=== PATIENT | female | born 1970 | race Caucasian/White ===

== ENCOUNTER 2021-06-15 08:17 | Day surgery (SDC) | payer BC | END 2021-06-15 22:48 | disposition home or self-care (01) | LOC: WOUND 08:17 | DX: T81.31XA Disruption of external operation (surgical) wound, not elsewhere classified, initial encounter (principal); S21.001D Unspecified open wound of right breast, subsequent encounter; S21.002D Unspecified open wound of left breast, subsequent encounter; X58.XXXD Exposure to other specified factors, subsequent encounter | CPT/HCPCS: A9270; G0463 ==

== ENCOUNTER 2021-06-22 02:19 | Day surgery (SDC) | payer BC | END 2021-06-22 23:18 | disposition home or self-care (01) | LOC: WOUND 02:19 | DX: S21.001D Unspecified open wound of right breast, subsequent encounter (principal); S21.002D Unspecified open wound of left breast, subsequent encounter; X58.XXXD Exposure to other specified factors, subsequent encounter | CPT/HCPCS: A9270; G0463 ==

== ENCOUNTER 2021-06-29 00:25 | Day surgery (SDC) | payer BC | END 2021-06-29 23:23 | disposition home or self-care (01) | LOC: WOUND 00:25 | DX: T81.31XA Disruption of external operation (surgical) wound, not elsewhere classified, initial encounter (principal); S21.002D Unspecified open wound of left breast, subsequent encounter; S21.001D Unspecified open wound of right breast, subsequent encounter; X58.XXXD Exposure to other specified factors, subsequent encounter | CPT/HCPCS: A9270 ==

== ENCOUNTER 2021-07-04 03:08 | Day surgery (SDC) | payer BC | END 2021-07-04 23:21 | disposition home or self-care (01) | LOC: WOUND 03:08 | DX: S21.002A Unspecified open wound of left breast, initial encounter (principal); S21.001A Unspecified open wound of right breast, initial encounter; X58.XXXA Exposure to other specified factors, initial encounter ==

== ENCOUNTER 2021-07-06 01:22 | Day surgery (SDC) | payer BC | END 2021-07-06 23:06 | disposition home or self-care (01) | LOC: WOUND 01:22 | DX: S21.001D Unspecified open wound of right breast, subsequent encounter (principal); S21.002D Unspecified open wound of left breast, subsequent encounter | CPT/HCPCS: A9270 ==

== ENCOUNTER 2021-07-08 03:03 | Day surgery (SDC) | payer BC | END 2021-07-08 23:33 | disposition home or self-care (01) | LOC: WOUND 03:03 | DX: S21.001A Unspecified open wound of right breast, initial encounter (principal); S21.002A Unspecified open wound of left breast, initial encounter; X58.XXXA Exposure to other specified factors, initial encounter | CPT/HCPCS: A9270 ==

== ENCOUNTER 2021-07-12 09:16 | Day surgery (SDC) | payer BC | END 2021-07-12 23:01 | disposition home or self-care (01) | LOC: WOUND 09:16 | DX: S21.001D Unspecified open wound of right breast, subsequent encounter (principal); S21.002D Unspecified open wound of left breast, subsequent encounter; X58.XXXD Exposure to other specified factors, subsequent encounter | CPT/HCPCS: G0463 ==

== ENCOUNTER 2021-07-15 01:28 | Day surgery (SDC) | payer BC | END 2021-07-15 23:15 | disposition home or self-care (01) | LOC: WOUND 01:28 | DX: T81.31XA Disruption of external operation (surgical) wound, not elsewhere classified, initial encounter (principal); S21.001D Unspecified open wound of right breast, subsequent encounter; S21.002D Unspecified open wound of left breast, subsequent encounter; X58.XXXD Exposure to other specified factors, subsequent encounter | CPT/HCPCS: 87070; 87075; 87205; A9270; G0463 ==

== ENCOUNTER 2021-07-18 08:47 | Day surgery (SDC) | payer BC | END 2021-07-18 23:43 | disposition home or self-care (01) | LOC: WOUND 08:47 | DX: T81.31XA Disruption of external operation (surgical) wound, not elsewhere classified, initial encounter (principal); Y83.8 Other surgical procedures as the cause of abnormal reaction of the patient, or of later complication, without mention of misadventure at the time of the procedure | CPT/HCPCS: A9270; G0463 ==

== ENCOUNTER 2021-07-22 01:54 | Day surgery (SDC) | payer BC | END 2021-07-22 23:26 | disposition home or self-care (01) | LOC: WOUND 01:54 | DX: T81.31XA Disruption of external operation (surgical) wound, not elsewhere classified, initial encounter (principal); S21.001D Unspecified open wound of right breast, subsequent encounter; S21.002D Unspecified open wound of left breast, subsequent encounter; X58.XXXD Exposure to other specified factors, subsequent encounter | CPT/HCPCS: A9270 ==

== ENCOUNTER 2021-07-25 08:56 | Day surgery (SDC) | payer BC | END 2021-07-25 23:03 | disposition home or self-care (01) | LOC: WOUND 08:56 | DX: S21.001D Unspecified open wound of right breast, subsequent encounter (principal); S21.002D Unspecified open wound of left breast, subsequent encounter; X58.XXXD Exposure to other specified factors, subsequent encounter ==

== ENCOUNTER 2021-07-27 08:12 | Day surgery (SDC) | payer BC | END 2021-07-27 12:00 | disposition home or self-care (01) | LOC: WOUND 08:12 | DX: S21.002D Unspecified open wound of left breast, subsequent encounter (principal); S21.001D Unspecified open wound of right breast, subsequent encounter; X58.XXXD Exposure to other specified factors, subsequent encounter ==

== ENCOUNTER 2021-07-29 04:38 | Day surgery (SDC) | payer BC | END 2021-07-29 23:21 | disposition home or self-care (01) | LOC: WOUND 04:38 | DX: S21.001D Unspecified open wound of right breast, subsequent encounter (principal); S21.002D Unspecified open wound of left breast, subsequent encounter; X58.XXXD Exposure to other specified factors, subsequent encounter ==

== ENCOUNTER 2021-08-01 04:43 | Day surgery (SDC) | payer BC | END 2021-08-01 23:50 | disposition home or self-care (01) | LOC: WOUND 04:43 | DX: S21.001D Unspecified open wound of right breast, subsequent encounter (principal); S21.002D Unspecified open wound of left breast, subsequent encounter; X58.XXXD Exposure to other specified factors, subsequent encounter | CPT/HCPCS: A9270 ==

== ENCOUNTER 2021-08-05 00:48 | Day surgery (SDC) | payer BC | END 2021-08-05 12:00 | disposition home or self-care (01) | LOC: WOUND 00:48 | DX: S21.001D Unspecified open wound of right breast, subsequent encounter (principal); S21.002D Unspecified open wound of left breast, subsequent encounter; X58.XXXD Exposure to other specified factors, subsequent encounter ==

== ENCOUNTER 2021-08-10 02:11 | Day surgery (SDC) | payer BC | END 2021-08-10 23:07 | disposition home or self-care (01) | LOC: WOUND 02:11 | DX: T81.31XA Disruption of external operation (surgical) wound, not elsewhere classified, initial encounter (principal); S21.001D Unspecified open wound of right breast, subsequent encounter; S21.002D Unspecified open wound of left breast, subsequent encounter; X58.XXXD Exposure to other specified factors, subsequent encounter | CPT/HCPCS: A9270 ==

== ENCOUNTER 2021-08-12 01:27 | Day surgery (SDC) | payer BC | END 2021-08-12 23:51 | disposition home or self-care (01) | LOC: WOUND 01:27 | DX: S21.001D Unspecified open wound of right breast, subsequent encounter (principal); S21.002D Unspecified open wound of left breast, subsequent encounter; X58.XXXD Exposure to other specified factors, subsequent encounter ==

== ENCOUNTER 2021-08-15 03:09 | Day surgery (SDC) | payer BC | END 2021-08-15 22:56 | disposition home or self-care (01) | LOC: WOUND 03:09 | DX: S21.001D Unspecified open wound of right breast, subsequent encounter (principal); S21.002D Unspecified open wound of left breast, subsequent encounter; X58.XXXD Exposure to other specified factors, subsequent encounter ==

== ENCOUNTER 2021-08-17 05:11 | Day surgery (SDC) | payer BC | END 2021-08-17 22:49 | disposition home or self-care (01) | LOC: WOUND 05:11 | DX: S21.001D Unspecified open wound of right breast, subsequent encounter (principal); S21.002D Unspecified open wound of left breast, subsequent encounter; X58.XXXD Exposure to other specified factors, subsequent encounter | CPT/HCPCS: A9270 ==

== ENCOUNTER 2021-08-19 04:15 | Day surgery (SDC) | payer BC | END 2021-08-19 23:48 | disposition home or self-care (01) | LOC: WOUND 04:15 | DX: T81.31XA Disruption of external operation (surgical) wound, not elsewhere classified, initial encounter (principal) | CPT/HCPCS: A9270 ==

== ENCOUNTER 2021-08-31 01:40 | Day surgery (SDC) | payer BC | END 2021-08-31 23:21 | disposition home or self-care (01) | LOC: WOUND 01:40 | DX: S21.001D Unspecified open wound of right breast, subsequent encounter (principal); S21.002D Unspecified open wound of left breast, subsequent encounter; X58.XXXD Exposure to other specified factors, subsequent encounter ==

== ENCOUNTER 2021-09-02 05:50 | Day surgery (SDC) | payer BC | END 2021-09-02 23:51 | disposition home or self-care (01) | LOC: WOUND 05:50 | DX: S21.001D Unspecified open wound of right breast, subsequent encounter (principal); S21.002D Unspecified open wound of left breast, subsequent encounter; X58.XXXD Exposure to other specified factors, subsequent encounter ==

== ENCOUNTER 2021-09-05 08:43 | Day surgery (SDC) | payer BC | END 2021-09-05 23:24 | disposition home or self-care (01) | LOC: WOUND 08:43 | DX: T81.31XA Disruption of external operation (surgical) wound, not elsewhere classified, initial encounter (principal); S21.001D Unspecified open wound of right breast, subsequent encounter; S21.002D Unspecified open wound of left breast, subsequent encounter; X58.XXXD Exposure to other specified factors, subsequent encounter ==

== ENCOUNTER 2021-09-07 02:48 | Day surgery (SDC) | payer BC | END 2021-09-07 12:00 | disposition home or self-care (01) | LOC: WOUND 02:48 | DX: S21.001D Unspecified open wound of right breast, subsequent encounter (principal); S21.002D Unspecified open wound of left breast, subsequent encounter; X58.XXXD Exposure to other specified factors, subsequent encounter | CPT/HCPCS: A9270 ==

== ENCOUNTER 2021-09-09 05:27 | Day surgery (SDC) | payer BC | END 2021-09-09 23:39 | disposition home or self-care (01) | LOC: WOUND 05:27 | DX: S21.001D Unspecified open wound of right breast, subsequent encounter (principal); S21.002D Unspecified open wound of left breast, subsequent encounter; X58.XXXD Exposure to other specified factors, subsequent encounter ==

== ENCOUNTER 2021-09-12 05:40 | Day surgery (SDC) | payer BC | END 2021-09-12 23:00 | disposition home or self-care (01) | LOC: WOUND 05:40 | DX: S21.001D Unspecified open wound of right breast, subsequent encounter (principal); S21.002D Unspecified open wound of left breast, subsequent encounter; X58.XXXD Exposure to other specified factors, subsequent encounter | CPT/HCPCS: A9270 ==

== ENCOUNTER 2021-09-16 04:43 | Day surgery (SDC) | payer BC | END 2021-09-16 23:38 | disposition home or self-care (01) | LOC: WOUND 04:43 | DX: S21.001D Unspecified open wound of right breast, subsequent encounter (principal); S21.002D Unspecified open wound of left breast, subsequent encounter; X58.XXXD Exposure to other specified factors, subsequent encounter | CPT/HCPCS: A9270 ==

== ENCOUNTER 2021-09-21 03:28 | Day surgery (SDC) | payer BC | END 2021-09-21 23:53 | disposition home or self-care (01) | LOC: WOUND 03:28 | DX: S21.001D Unspecified open wound of right breast, subsequent encounter (principal); S21.002D Unspecified open wound of left breast, subsequent encounter; X58.XXXD Exposure to other specified factors, subsequent encounter | CPT/HCPCS: G0463 ==

== ENCOUNTER 2021-09-23 05:28 | Day surgery (SDC) | payer BC | END 2021-09-23 23:00 | disposition home or self-care (01) | LOC: WOUND 05:28 | DX: S21.001D Unspecified open wound of right breast, subsequent encounter (principal); S21.002D Unspecified open wound of left breast, subsequent encounter; X58.XXXD Exposure to other specified factors, subsequent encounter | CPT/HCPCS: G0463 ==

== ENCOUNTER 2021-09-26 08:53 | Day surgery (SDC) | payer BC | END 2021-09-26 23:08 | disposition home or self-care (01) | LOC: WOUND 08:53 | DX: T81.31XA Disruption of external operation (surgical) wound, not elsewhere classified, initial encounter (principal); S21.001D Unspecified open wound of right breast, subsequent encounter; S21.002D Unspecified open wound of left breast, subsequent encounter; X58.XXXD Exposure to other specified factors, subsequent encounter | CPT/HCPCS: G0463 ==

== ENCOUNTER 2021-09-28 05:15 | Day surgery (SDC) | payer BC | END 2021-09-28 23:44 | disposition home or self-care (01) | LOC: WOUND 05:15 | DX: S21.001D Unspecified open wound of right breast, subsequent encounter (principal); S21.002D Unspecified open wound of left breast, subsequent encounter; X58.XXXD Exposure to other specified factors, subsequent encounter | CPT/HCPCS: G0463 ==

== ENCOUNTER 2021-10-03 02:59 | Day surgery (SDC) | payer BC | END 2021-10-03 23:03 | disposition home or self-care (01) | LOC: WOUND 02:59 | DX: T81.31XA Disruption of external operation (surgical) wound, not elsewhere classified, initial encounter (principal); S21.001D Unspecified open wound of right breast, subsequent encounter; S21.002D Unspecified open wound of left breast, subsequent encounter; X58.XXXD Exposure to other specified factors, subsequent encounter | CPT/HCPCS: A9270; G0463 ==

== ENCOUNTER 2021-10-10 04:22 | Day surgery (SDC) | payer BC | END 2021-10-10 12:00 | disposition home or self-care (01) | LOC: WOUND 04:22 | DX: T81.31XA Disruption of external operation (surgical) wound, not elsewhere classified, initial encounter (principal); S21.001D Unspecified open wound of right breast, subsequent encounter; S21.002D Unspecified open wound of left breast, subsequent encounter; X58.XXXD Exposure to other specified factors, subsequent encounter | CPT/HCPCS: A9270; G0463 ==

== ENCOUNTER 2021-10-17 04:38 | Day surgery (SDC) | payer BC | END 2021-10-17 22:54 | disposition home or self-care (01) | LOC: WOUND 04:38 | DX: T81.31XA Disruption of external operation (surgical) wound, not elsewhere classified, initial encounter (principal); S21.001D Unspecified open wound of right breast, subsequent encounter; S21.002D Unspecified open wound of left breast, subsequent encounter; X58.XXXD Exposure to other specified factors, subsequent encounter | CPT/HCPCS: A9270 ==

== ENCOUNTER 2021-10-24 03:54 | Day surgery (SDC) | payer BC | END 2021-10-24 22:46 | disposition home or self-care (01) | LOC: WOUND 03:54 | DX: T81.31XA Disruption of external operation (surgical) wound, not elsewhere classified, initial encounter (principal); S21.001D Unspecified open wound of right breast, subsequent encounter; S21.002D Unspecified open wound of left breast, subsequent encounter; X58.XXXD Exposure to other specified factors, subsequent encounter | CPT/HCPCS: A9270; G0463 ==

== ENCOUNTER 2021-11-07 01:16 | Day surgery (SDC) | payer BC | END 2021-11-07 23:23 | disposition home or self-care (01) | LOC: WOUND 01:16 | DX: T81.31XD Disruption of external operation (surgical) wound, not elsewhere classified, subsequent encounter (principal); Y83.9 Surgical procedure, unspecified as the cause of abnormal reaction of the patient, or of later complication, without mention of misadventure at the time of the procedure | CPT/HCPCS: G0463 ==

== ENCOUNTER 2021-11-21 03:04 | Day surgery (SDC) | payer BC | END 2021-11-21 22:46 | disposition home or self-care (01) | LOC: WOUND 03:04 | DX: T81.31XD Disruption of external operation (surgical) wound, not elsewhere classified, subsequent encounter (principal); Y83.8 Other surgical procedures as the cause of abnormal reaction of the patient, or of later complication, without mention of misadventure at the time of the procedure | CPT/HCPCS: G0463 ==

== ENCOUNTER → 2023-11-21 | Outpatient (CLI) | payer BC ==
[2023-12-01 04:20] LABS: HPV GENOTYPE 16 BY PCR Negative; HPV GENOTYPE 18 BY PCR Negative; HPV SOURCE Not Provided; HPV, OTHER HIGH RISK BY PCR Negative
== END ==
LOC: LAB 17:28 → LAB SHORT 17:28
PROVIDERS: Nurse Practitioner Family
DX: Z01.419 Encounter for gynecological examination (general) (routine) without abnormal findings (principal)
CPT/HCPCS: 87624